=== PATIENT | male | born 1960 | race African-American/Black ===

== ENCOUNTER 2018-07-10 05:26 | Day surgery (SDC) | payer OTHER ==
[~2018-07-10] VITALS: Ht 180.3 cm; Wt 77.1 kg
[2018-07-10] MEDS ORDERED: MULT-1116 PO (06:55)
[2018-07-10] MEDS ORDERED: AMLO5TAB88 PO (06:55)
[2018-07-10] MEDS ORDERED: POTA-79 PO (06:55)
[2018-07-10] MEDS ORDERED: NITR0.4T SL (06:55)
[2018-07-10] MEDS ORDERED: CARV12.545 PO (06:55)
[2018-07-10] MEDS ORDERED: FURO40TA5 PO (06:55)
[2018-07-10] MEDS ORDERED: LISI10TA5 PO (06:55)
[2018-07-10] MEDS ORDERED: APIX2.5T PO (06:55)
[2018-07-10] MEDS ORDERED: SKIN ADHESIVE 0.7 GM EA TOP ONE ×2 (07:10→07:26)
[2018-07-10] MEDS ORDERED: BUPIVACAINE HCL/PF 0.5% (5MG/ML) 10ML ONE ×3 (07:10→07:16)
[2018-07-10] MEDS ORDERED: LIDOCAINE HCL/PF 1% 10 MG/ML 5ML VIAL ONE (07:13)
[2018-07-10] MEDS ORDERED: FENTANYL CITRATE/PF 50MCG/ML 2ML VIAL ONE (07:13)
[2018-07-10] MEDS ORDERED: MIDAZOLAM HCL 2 MG/2 ML VIAL ONE (07:13)
[2018-07-10] MEDS ORDERED: PROPOFOL 200MG/20ML VIAL IV ONE (07:13)
[2018-07-10] MEDS ORDERED: SODIUM CHLORIDE 0.9% 10ML VIAL ONE ×2 (07:16→07:49)
[2018-07-10] MEDS ORDERED: PHENYLEPHRINE HCL 10 MG/ML 1ML (IV VIAL) IV ONE (07:16)
[2018-07-10] MEDS ORDERED: ROCURONIUM BROMIDE 10MG/ML VIAL 5ML IV ONE (07:21)
[2018-07-10] MEDS ORDERED: CEFAZOLIN SODIUM 1000MG/VIAL ONE (07:49)
[2018-07-10] MEDS ORDERED: ONDANSETRON HCL 4MG/2ML INJ ONE (08:00)
[2018-07-10] MEDS ORDERED: NEOSTIGMINE METHYLSULFATE 1MG/ML 10 ML VIAL ONE (08:04)
[2018-07-10] MEDS ORDERED: GLYCOPYRROLATE 0.2 MG/ML 2ML VIAL ONE (08:05)
[2018-07-10] MEDS ORDERED: BUPIVACAINE HCL 0.5% 125 ML in ON-Q PM012 DRUG DELIV DEVICE 1 EA IR SCH (08:30)
[2018-07-10] MEDS ORDERED: FLUMAZENIL 0.1 MG/ML 5ML VIAL IV ONE (08:40)
[2018-07-10] MEDS: MORPHINE SULFATE 10 MG/ML CPJ IV PRN ×2 (09:11→11:09)
[2018-07-10 11:09] VITALS: BP 140/80
== END 2018-07-10 14:00 | disposition home or self-care (01) ==
LOC: OR 05:26
PROVIDERS: ATTEND Surgery
DX: K40.90 Unilateral inguinal hernia, without obstruction or gangrene, not specified as recurrent (principal); I10 Essential (primary) hypertension; Z79.899 Other long term (current) drug therapy; Z98.890 Other specified postprocedural states
CPT/HCPCS: 36415; 49505; 71045; 84132; 93005; A4216; C1781; J0690; J2250; J2270; J2370; J2405; J2710; J3010; J3490; J2704; J7030; J7120